=== PATIENT | male | born 1965 | race Caucasian/White ===

== ENCOUNTER 2018-01-23 06:11 | Day surgery (SDC) | payer OTHER ==
[~2018-01-23] VITALS: Ht 177.8 cm; Wt 111.4 kg
[2018-01-23] MEDS ORDERED: SODIUM CHLORIDE 0.9% 1,000 ML IV ONE (07:00)
[2018-01-23] MEDS ORDERED: LISI1TAB11 PO (07:34)
[2018-01-23] MEDS ORDERED: TIOT185 IH (07:34)
[2018-01-23] MEDS ORDERED: BACL20TA PO (07:34)
[2018-01-23] MEDS ORDERED: IPRA3AMP23 IH (07:34)
[2018-01-23] MEDS ORDERED: ALBU90AE PO (07:34)
[2018-01-23] MEDS ORDERED: GABA-531 PO (07:34)
[2018-01-23] MEDS ORDERED: FAMO20 PO (07:34)
[2018-01-23] MEDS ORDERED: FLUT9.9S NASAL (07:34)
[2018-01-23] MEDS ORDERED: MONT10TA21 PO (07:34)
[2018-01-23] MEDS ORDERED: MOME13HF IH (07:34)
[2018-01-23] MEDS ORDERED: FentaNYL CITRATE-PF 100 MCG/2 ML VIAL ONE (07:58)
[2018-01-23] MEDS ORDERED: MIDAZOLAM HCL 2 MG/2 ML VIAL ONE (07:59)
[2018-01-23] MEDS ORDERED: MethylPREDNISolone SOD SUCC 125 MG/2 ML VIAL IVP ONE (08:45)
[2018-01-23] MEDS ORDERED: MethylPREDNISolone SOD SUCC 125 MG/2 ML VIAL ONE (08:51)
[2018-01-23] MEDS ORDERED: ALBUTEROL SULFATE 2.5 MG/0.5 ML NEB SOLUTION NEB ONE (17:04)
[2018-01-23] MEDS ORDERED: LIDOCAINE HCL 2% 30 ML JELLY ONE (17:04)
[2018-01-23] MEDS ORDERED: LIDOCAINE HCL 4% 50 ML SOLUTION ONE (17:04)
[2018-01-23] MEDS ORDERED: OXYGEN THERAPY IH SCH (20:00)
== END 2018-01-23 09:55 | disposition home or self-care (01) ==
LOC: SURGERY 06:11
PROVIDERS: ATTEND Internal Medicine Critical Care Medicine
DX: J38.4 Edema of larynx (principal); B37.0 Candidal stomatitis; J84.111 Idiopathic interstitial pneumonia, not otherwise specified; J44.9 Chronic obstructive pulmonary disease, unspecified; I10 Essential (primary) hypertension; F17.210 Nicotine dependence, cigarettes, uncomplicated; F10.21 Alcohol dependence, in remission; Z79.891 Long term (current) use of opiate analgesic; Z79.899 Other long term (current) drug therapy; Z98.890 Other specified postprocedural states
CPT/HCPCS: 31623; 31624; 71045; 87015; 87070; 87205; 87206; 87220; 88108; 88312; J2250; J2930; J3010